=== PATIENT | female | born 1970 | race Caucasian/White ===

== ENCOUNTER → 2016-02-13 | Emergency (ER) | payer MEDICAID ==
[~2016-02-13] VITALS: Ht 167.6 cm; Wt 108.3 kg
[~2016-02-13] MED LIST: ACDPT PO; ACET1TAB43 PO; ALBU8.5H6 IH; CEPH500C PO; CPR500T PO; CYCL10TA45 PO; DIPH1TAB45 PO; HYDR-33 PO; HYDR-3702 PO; LEVO500T16 PO; METR500T PO; MULT-955 PO; ONDA4TAB8 PO; ONDAN4ODT PO; OXYC5CAP4 BC; PRED20TA PO; ZOLP5TAB PO
[2016-02-13 15:42] VITALS: BP 128/60
== END | disposition home or self-care (01) ==
LOC: ED 15:30
DX: S46.811A Strain of other muscles, fascia and tendons at shoulder and upper arm level, right arm, initial encounter (principal); Y93.84 Activity, sleeping; Y92.003 Bedroom of unspecified non-institutional (private) residence as the place of occurrence of the external cause
CPT/HCPCS: 99282; 99283

== ENCOUNTER 2016-03-30 06:26 | Emergency (ER) | payer MEDICAID ==
[~2016-03-30] VITALS: Ht 167.6 cm; Wt 106.8 kg
[2016-03-30] MEDS ORDERED: ALBUTEROL 0.083% NEB SOLUTION 2.5 MG/3 ML VIAL INH ONE (06:40)
[2016-03-30] MEDS ORDERED: fentaNYL 100 MCG/2 ML VIAL IV ONE (06:40)
[2016-03-30] MEDS ORDERED: SODIUM CHLORIDE FLUSH 3 ML SYR IV ONE (06:50)
[2016-03-30] MEDS: SODIUM CHLORIDE FLUSH 10 ML SYR IV PRN ×2 (06:54→06:59)
[2016-03-30 06:58] LABS: BASOPHILS % (AUTO) 1 % (0-2); EOSINOPHILS # (AUTO) 0.2 10^3uL; EOSINOPHILS % (AUTO) 2 % (0-4); LYMPHOCYTES # (AUTO) 0.8 X10^3; MEAN CORPUSCULAR HEMOGLOBIN 29.3 PG (26.0-34.0); MEAN CORPUSCULAR HGB CONC 34.9 g/dL (31.0-37.0); MEAN CORPUSCULAR VOLUME 84 FL (80-100); MEAN PLATELET VOLUME 11.9 FL (6.0-9.5); MONOCYTES % (AUTO) 14 % (3-11); NEUTROPHILS # (AUTO) 5.1 X10^3; NEUTROPHILS % (AUTO) 73 % (51-67); PLATELET COUNT 218 10^3uL (150-450)
--- NOTE | 2016-03-30 06:59 | NUR ---
[facility] UMAÑA TOOK OVER CARE OF PT
[2016-03-30 07:09] LABS: ALKALINE PHOSPHATASE 88 U/L (38-126); ANION GAP 12.4 MEQ/L (3-15); BUN/CREATININE RATIO 7 (10-20); CALCULATED IONIZED CALCIUM 3.9 mg/dL (3.8-4.6); TOTAL PROTEIN 7.3 g/dL (6.4-8.5)
[2016-03-30] MEDS ORDERED: ACETAMINOPHEN 500 MG TAB (TYLENOL) PO ONE (07:45)
--- NOTE | 2016-03-30 08:44 | NUR ---
Lab states to this nurse that RT panel had an error and as to be started again. Pt informed.
[2016-03-30 10:08] VITALS: BP 97/58
== END 2016-03-30 10:09 | disposition home or self-care (01) ==
LOC: EDUNIT# 06:26 → ED 06:29
DX: J11.1 Influenza due to unidentified influenza virus with other respiratory manifestations (principal)
CPT/HCPCS: 36415; 71020; 80053; 84484; 85025; 85379; 85610; 85730; 87486; 87581; 87633; 87798; 93005; 94640; 96361; 96374; 99285; A9270; J3010; J7030; J7613; 93010

== ENCOUNTER → 2016-03-30 | Outpatient (CLI) | payer MEDICAID | LOC: EMS 06:25 | PROVIDERS: ATTEND Emergency Medicine | DX: R07.2 Precordial pain (principal) ==